=== PATIENT | female | born 1980 ===

== ENCOUNTER 2025-06-07 11:32 | Emergency (ER) | payer MEDICAID, OTHER, SELFPAY ==
--- NOTE | ~2025-06-07 | CT_ITS ---
CLINICAL HISTORY: severe headache, R O aneurysm. CT head without contrast CT angiography head and neck with contrast. 3D Postprocessing. COMPARISON: None provided. FINDINGS: HEAD CT: No intra-axial mass, midline shift, hydrocephalus, or acute hemorrhage. No significant atrophy-like change or white matter disease. There is no sinus or mastoid fluid. The orbits are unremarkable. No calvarial fracture. HEAD AND NECK CTA: Aortic arch and cervical great vessels are patent. Intracranial arteries are patent. No aneurysm, dissection, hemodynamically significant stenoses, or occlusion. No abnormal intracranial enhancement. The visualized thyroid gland is unremarkable. No cervical mass or fluid collection. Visualized lung apices are clear. No acute fracture. IMPRESSION: 1. No acute intracranial findings. 2. Patent head and neck CTA. This document has been electronically signed by: Al Philip MD on 06/07/2025 18:00:55
[2025-06-07 11:48] VITALS: BP 113/69; PULSE 80; RESP 16; TEMP 37; O2SAT 99; BMI 34.7
--- NOTE | 2025-06-07 11:48 | ED_ITS ---
HPI - General Adult General Chief complaint: Headache Stated complaint: throat pain, headache Time Seen by Provider: 06/07/25 16:09 Related Data Previous Rx's ?Medication ?Instructions ?Recorded levothyroxine 25 mcg capsule 25 mcg PO DAILY #20 caps 06/07/25 Allergies Allergy/AdvReac Type Severity Reaction Status Date / Time No Known Allergies Allergy Verified 06/07/25 11:51 Physical Exam ED Vital Signs: BMI result Body Mass Index 34.7 Course Course Course Narrative: This is a rapid medical exam performed by Jace Cantu NP: Additional HPI, ROS, PE not included below will be deferred to primary provider. Patient is a 44y/o F presenting with 5 days of posterior neck pain radiating to headache, as well as submandibular pain. Also complains of fatigue. States she stopped taking her thyroid medication 2 years ago because she had difficulty getting to appointments. Plan: labs, viral swabs Medications Administered Discontinued Medications Generic Name Dose Route Start Last Admin Trade Name Freq PRN Reason Stop Dose Admin Diphenhydramine HCl 25 mg 06/07/25 16:23 06/07/25 16:34 Diphenhydramine Hcl 50 Mg/Ml Vial IVPUSH 06/07/25 16:24 25 mg ONCE ONE Administration Sodium Chloride 1,000 mls @ 999 mls/hr 06/07/25 16:23 06/07/25 16:34 Ns IV 06/07/25 17:23 999 mls/hr .Q1H1M ONE Administration Iohexol 100 ml 06/07/25 17:25 06/07/25 17:25 Iohexol 350 Mg/Ml 100 Ml Infus..Btl IV 06/07/25 17:26 70 ml ONCE ONE Administration Levothyroxine Sodium 50 mcg 06/07/25 16:28 06/07/25 16:34 Levothyroxine Sodium 50 Mcg Tablet PO 06/07/25 16:29 50 mcg ONCE ONE Administration Ondansetron HCl 4 mg 06/07/25 16:23 06/07/25 16:34 Ondansetron Hcl 4 Mg/2 Ml Vial IVPUSH 06/07/25 16:24 4 mg ONCE ONE Administration Medical Decision Making Lab Data 06/07/25 12:00 06/07/25 12:00 Labs: Lab Results 06/07/25 Range/Units 12:00 WBC 7.1 (4.8-10.8) X10*3/uL RBC 3.69 L (4.20-5.50) X10*6/uL Hgb 8.7 L (12.0-16.0) g/dl Hct 27.4 L (37.0-47.0) % MCV 74.3 L (80.0-98.0) fL MCH 23.6 L (27.0-33.0) pg MCHC 31.8 (31.0-35.0) g/dl RDW 15.3 (11.0-16.0) % Plt Count 460 H (160-400) X10*3/uL MPV 9.0 L (9.4-12.3) fL Immature Gran % (Auto) 0.6 H (0.0-0.4) % Neut % (Auto) 56.5 (45-73) % Lymph % (Auto) 28.0 (20-40) % Carbon % (Auto) 8.4 (2-11) % Eos % (Auto) 5.5 H (0-4) % Baso % (Auto) 1.0 (0-2) % Lymph # (Auto) 2.0 (1.2-4.9) X10*3/uL Carbon # (Auto) 0.6 (0.1-1.2) X10*3/uL Eos # (Auto) 0.4 (0.0-0.4) X10*3/uL Baso # (Auto) 0.1 (0.0-0.2) X10*3/uL Abs Immat Gran (auto) 0.04 H (0.00-0.03) X10*3/uL Absolute Neuts (auto) 4.0 (2.0-8.3) x10*3/uL Absolute Nucleated RBC 0.000 (0.0-0.012) X10*3/uL Nucleated RBC % (auto) 0.0 (0.0-0.2) /100WBC Sodium 136 (135-145) mmol/L Potassium 3.8 (3.3-5.1) mmol/L Chloride 107 (96-108) mmol/L Carbon Dioxide 25 (22-29) mmol/L Anion Gap 8 L (12-20) BUN 7 L (9-16) mg/dL Creatinine 0.51 (0.5-1.4) mg/dL Estim Creat Clear Calc 171.8 Estimated GFR > 60 Random Glucose 206 H (60-115) mg/dL Calcium 9.0 (8.4-10.2) mg/dL Total Bilirubin 0.3 (0.0-1.0) mg/dL AST 23 (5-31) U/L ALT 33 H (0-31) U/L Alkaline Phosphatase 70 (39-117) U/L Total Protein 7.0 (6.5-8.0) g/dL Albumin 4.4 (3.5-5.0) g/dL TSH 4.20 H (0.32-4.0) uIU/mL Free T4 0.92 (0.71-1.85) ng/dL COVID-19 ([facility]) Negative (Negative) COVID-19 Clin Com See Note Influenza Type A ([facility]) Negative (Negative) Influenza Type B ([facility]) Negative (Negative) Influenza A & B Note See Note S. pyogenes GrpA [facility] Negative (Negative) Discharge Plan Discharge Clinical Impression: Headache, Hypothyroidism Patient Disposition: Home, Self-Care Instructions: Hypothyroidism (ED), Acute Headache (ED) Prescriptions: New levothyroxine 25 mcg capsule 25 mcg PO DAILY Qty: 20 0RF Discharge Date/Time: 06/07/25 20:37 Print Language: Citizen Of [place]
[2025-06-07 12:04] LABS: MANUAL DIFF FLAG NO
[2025-06-07 12:05] LABS: Hematocrit 27.4 % (37.0-47.0); Hemoglobin 8.7 g/dl (12.0-16.0); Imm Gran Abs Auto 0.04 X10*3/uL (0.00-0.03); Imm Gran Pct Auto 0.6 % (0.0-0.4); Lymphocytes Absolute Auto 2.0 X10*3/uL (1.2-4.9); Mean Corpuscular HGB Conc 31.8 g/dl (31.0-35.0); Mean Corpuscular Hemoglobin 23.6 pg (27.0-33.0); Mean Corpuscular Volume 74.3 fL (80.0-98.0); NRBC Abs Auto 0.000 X10*3/uL (0.0-0.012); NRBC Pct Auto 0.0 /100WBC (0.0-0.2); Platelet Count 460 X10*3/uL (160-400); Red Blood Count 3.69 X10*6/uL (4.20-5.50); White Blood Count 7.1 X10*3/uL (4.8-10.8)
[2025-06-07 12:18] LABS: IDNOW Serial# 08D9AD1C; Strep A Nucleic Acid Negative (Negative)
[2025-06-07 12:23] LABS: COVID-19 Test Negative (Negative); IDNOW Serial# 55D5AD1C; IDNOW Serial# 58CA691E; Influenza B2 Negative (Negative)
[2025-06-07 12:30] LABS: Alanine Aminotransferase 33 U/L (0-31); Albumin Level 4.4 g/dL (3.5-5.0); Alkaline Phosphatase 70 U/L (39-117); Anion Gap 8 (12-20); Aspartate Amino Transferase 23 U/L (5-31); Blood Urea Nitrogen 7 mg/dL (9-16); Calcium 9.0 mg/dL (8.4-10.2); Carbon Dioxide 25 mmol/L (22-29); Chloride 107 mmol/L (96-108); Creatinine Clr Calc Pharmacy 171.8; Estimated Glomerular Filt Rate > 60; Potassium 3.8 mmol/L (3.3-5.1); Sodium 136 mmol/L (135-145); Total Protein 7.0 g/dL (6.5-8.0)
[2025-06-07 13:39] LABS: Free T4 (Free Thyroxine) 0.92 ng/dL (0.71-1.85)
--- NOTE | 2025-06-07 16:25 | ED.HA ---
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 Hyde HPI Narrative: 4-year-old female came in for evaluation of multiple symptoms including generalized headache and neck pain, feeling heavy head and dizzy, no weakness, no numbness, patient complaining of headache in the occipital area going down to both sides of the neck, no neck stiffness, no photophobia, no nausea, no vomiting, patient overall feel generalized weakness with no energy. No fever, no sick contacts, no recent travel. Patient used to be treated for thyroid but was told her thyroid hormone is normal and she does not need to take the medicine anymore patient of thyroid medication for 2 years now. Related Data Previous Rx's ?Medication ?Instructions ?Recorded levothyroxine 25 mcg capsule 25 mcg PO DAILY #20 caps 06/07/25 Allergies Allergy/AdvReac Type Severity Reaction Status Date / Time No Known Allergies Allergy Verified 06/07/25 11:51 Review of Systems Review of Systems: All other systems are reviewed and are negative Constitutional: Reports as per HPI and Reports no additional constitutional complaints Eyes: Reports as per HPI and Reports no additional eye complaints Reports system reviewed and no additional complaints, except as documented Cardiovascular: Reports as per HPI and Reports no additional cardiovascular complaints Respiratory: Reports as per HPI and Reports no additional respiratory complaints Gastrointestinal: Reports as per HPI and Reports no additional gastrointestinal complaints Genitourinary: Reports no additional female genitourinary complaints Musculoskeletal: Reports no additional musculoskeletal complaints Skin/Breast: Reports system reviewed and no additional complaints, except as docu Psychiatric: Reports no additional psychiatric complaints Endocrine: Reports no additional endocrine complaints Hematologic/Lymphatic: Reports no additional hematologic/lymphatic complaints Allergic/Immunologic: Reports no additional allergic/immunologic complaints Reports system reviewed and no additional complaints, except as documented and Reports Abnormal speech present PMFSH Social History Social History Advance Directives: No Advance Directives Information Provided: No Physical Exam Vital Signs: Vital Signs: Last Vital Signs Temp 97.1 F 06/07/25 16:56 Pulse 71 06/07/25 18:24 Resp 16 06/07/25 18:24 BP 95/41 L 06/07/25 18:24 Pulse Ox 99 06/07/25 18:24 O2 Del Method Room Air 06/07/25 18:24 BMI result Body Mass Index 34.7 Vital signs have been reviewed and appear to be correct. Blood pressure elevated. Heart rate normal. Respiratory rate normal. Temperature normal. Oxygen saturation normal. Appearance: Alert. Oriented X3. No acute distress. Head: Normal external exam. Normocephalic. Atraumatic. No Sullivan signs noted. No raccoon eyes noted Eyes: PERRLA. EOMI. Conjunctiva and sclera normal. Eyelids normal. ENT: TM's Normal. Pharynx normal. Uvula midline. Moist mucous membranes. No trismus noted. No drooling noted. No muffled voice noted. Neck: Normal inspection. Neck supple. FROM. No adenopathy. Thyroid Normal. No meningeal signs. No neck mass noted. CVS: Normal heart rate and rhythm. Heart sound normal. No murmurs noted. Pulses normal throughout. Respiratory: No respiratory distress. Painless inspiration. Breath sounds normal. No wheezes/rales/rhonchi noted. Chest nontender. No accessory muscle usage noted or decreased air movement noted. Abdomen: Soft and nontender. Bowel sounds normal in all 4 quadrants. No distention noted. No organomegaly noted. No visible injury noted. Back: No CVA tenderness. Full range of motion noted. Skin: Skin warm and dry. Normal skin color. Normal skin turgor. No rashes/lesions/lacerations noted. Extremities: No lower extremity edema. Extremities exhibit normal range of motion. Extremities nontender. Neuro: Oriented X 3. Cranial nerve exam: II-XII are grossly intact No motor deficit. No sensory deficit. Reflexes normal. Course Reevaluation(s) Reevaluation #1: feels better, improvement of the headache and neck pain, no photophobia, no nausea, no vomiting. Patient may have subclinical hypothyroidism will start the patient on levothyroxine 25 mcg daily and follow-up with her PCP Time: 18:54 Medications Administered Discontinued Medications Generic Name Dose Route Start Last Admin Trade Name Freq PRN Reason Stop Dose Admin Diphenhydramine HCl 25 mg 06/07/25 16:23 06/07/25 16:34 Diphenhydramine Hcl 50 Mg/Ml Vial IVPUSH 06/07/25 16:24 25 mg ONCE ONE Administration Sodium Chloride 1,000 mls @ 999 mls/hr 06/07/25 16:23 06/07/25 16:34 Ns IV 06/07/25 17:23 999 mls/hr .Q1H1M ONE Administration Iohexol 100 ml 06/07/25 17:25 06/07/25 17:25 Iohexol 350 Mg/Ml 100 Ml Infus..Btl IV 06/07/25 17:26 70 ml ONCE ONE Administration Levothyroxine Sodium 50 mcg 06/07/25 16:28 06/07/25 16:34 Levothyroxine Sodium 50 Mcg Tablet PO 06/07/25 16:29 50 mcg ONCE ONE Administration Ondansetron HCl 4 mg 06/07/25 16:23 06/07/25 16:34 Ondansetron Hcl 4 Mg/2 Ml Vial IVPUSH 06/07/25 16:24 4 mg ONCE ONE Administration Medical Decision Making Differential Diagnosis Differential Diagnoses: The differential diagnosis associated with the presentation includes ( intracranial bleed, viral infection, electrolyte derangement, severe anemia, tension headache, SAH (not likely no severe headache, normal neurological exam )) Admission/Observation Consideration of admission/observation: Escalation of care including admission/observation considered Lab Data MDM Lab Attestation statement: I reviewed the patient's lab results. 06/07/25 12:00 06/07/25 12:00 Labs: Lab Results 06/07/25 Range/Units 12:00 WBC 7.1 (4.8-10.8) X10*3/uL RBC 3.69 L (4.20-5.50) X10*6/uL Hgb 8.7 L (12.0-16.0) g/dl Hct 27.4 L (37.0-47.0) % MCV 74.3 L (80.0-98.0) fL MCH 23.6 L (27.0-33.0) pg MCHC 31.8 (31.0-35.0) g/dl RDW 15.3 (11.0-16.0) % Plt Count 460 H (160-400) X10*3/uL MPV 9.0 L (9.4-12.3) fL Immature Gran % (Auto) 0.6 H (0.0-0.4) % Neut % (Auto) 56.5 (45-73) % Lymph % (Auto) 28.0 (20-40) % [place] % (Auto) 8.4 (2-11) % Eos % (Auto) 5.5 H (0-4) % Baso % (Auto) 1.0 (0-2) % Lymph # (Auto) 2.0 (1.2-4.9) X10*3/uL [place] # (Auto) 0.6 (0.1-1.2) X10*3/uL Eos # (Auto) 0.4 (0.0-0.4) X10*3/uL Baso # (Auto) 0.1 (0.0-0.2) X10*3/uL Abs Immat Gran (auto) 0.04 H (0.00-0.03) X10*3/uL Absolute Neuts (auto) 4.0 (2.0-8.3) x10*3/uL Absolute Nucleated RBC 0.000 (0.0-0.012) X10*3/uL Nucleated RBC % (auto) 0.0 (0.0-0.2) /100WBC Sodium 136 (135-145) mmol/L Potassium 3.8 (3.3-5.1) mmol/L Chloride 107 (96-108) mmol/L Carbon Dioxide 25 (22-29) mmol/L Anion Gap 8 L (12-20) BUN 7 L (9-16) mg/dL Creatinine 0.51 (0.5-1.4) mg/dL Estim Creat Clear Calc 171.8 Estimated GFR > 60 Random Glucose 206 H (60-115) mg/dL Calcium 9.0 (8.4-10.2) mg/dL Total Bilirubin 0.3 (0.0-1.0) mg/dL AST 23 (5-31) U/L ALT 33 H (0-31) U/L Alkaline Phosphatase 70 (39-117) U/L Total Protein 7.0 (6.5-8.0) g/dL Albumin 4.4 (3.5-5.0) g/dL TSH 4.20 H (0.32-4.0) uIU/mL Free T4 0.92 (0.71-1.85) ng/dL COVID-19 ([facility]) Negative (Negative) COVID-19 Clin Com See Note Influenza Type A ([facility]) Negative (Negative) Influenza Type B ([facility]) Negative (Negative) Influenza A & B Note See Note S. pyogenes GrpA [facility] Negative (Negative) Independent Interpretation I performed an independent interpretation of an: CT Scan ( head: No acute intrathoracic pathology.) Radiology Impression Discussion of test interpretation with radiology: I have reviewed the radiologist's reading. Discharge Plan Discharge Clinical Impression: Headache, Hypothyroidism Patient Disposition: Home, Self-Care Instructions: Hypothyroidism (ED), Acute Headache (ED) Prescriptions: New levothyroxine 25 mcg capsule 25 mcg PO DAILY Qty: 20 0RF Print Language: English
[2025-06-07 16:56] VITALS: BP 116/59; PULSE 72; RESP 14; TEMP 36.2; O2SAT 100
[2025-06-07] MEDS: iohexoL 350 MG/ML 100 ML INFUS..BTL IV (17:25)
[2025-06-07 18:24] VITALS: BP 95/41; PULSE 71; RESP 16; O2SAT 99
== END 2025-06-07 20:37 | disposition home or self-care (01) ==
PROVIDERS: Registered Nurse Emergency; Emergency Provider Emergency Medicine
DX: R51.9 Headache, unspecified (principal); E03.9 Hypothyroidism, unspecified; Z79.899 Other long term (current) drug therapy
CPT/HCPCS: 70496; 70498; 80053; 84439; 84443; 85025; 87502; 87635; 87651; 96361; 96374; 96375; 99284; 99285; J1200; J2405; Q9967

== ENCOUNTER → 2025-06-07 16:34 | Outpatient (BNV) | payer MEDICAID, SELFPAY | PROVIDERS: Emergency Provider Emergency Medicine; Visit Provider Radiology Diagnostic Radiology | DX: R51.9 Headache, unspecified (principal) | CPT/HCPCS: 70496; 70498 ==